=== PATIENT | female | born 1975 | race Caucasian/White ===

== ENCOUNTER 2018-08-28 19:58 | Emergency (ER) | payer MEDICAID ==
[~2018-08-28] VITALS: Ht 170.2 cm; Wt 73.0 kg
[~2018-08-28 19:58] MED LIST: FENT1PAT76 TP; GABA-826 PO
[2018-08-28] MEDS ORDERED: OXYC10TA6 PO (20:17)
[2018-08-28] MEDS ORDERED: CLON2TAB PO (20:17)
[2018-08-28] MEDS ORDERED: DIAZ5TAB PO (20:17)
[2018-08-28] MEDS ORDERED: LORazepam 2 MG/ML, 1ML IVPush ONE (20:30)
[2018-08-28] MEDS ORDERED: LORazepam 2 MG/ML, 1ML ONE (20:47)
--- NOTE | 2018-08-28 20:52 | NUR ---
PT MEDICATED PER MAR. VSS. NO NEEDS AT THIS TIME. PT RESTING IN ROOM WITH FAMILY AT BEDSIDE. CALL LIGHT WITHIN REACH.
[2018-08-28 20:53] VITALS: BP 106/95
[2018-08-28] MEDS ORDERED: KETOROLAC 30 MG/1 ML IVPush ONE (21:30)
[2018-08-28] MEDS ORDERED: KETOROLAC 30 MG/1 ML ONE (21:45)
== END 2018-08-28 22:17 | disposition home or self-care (01) ==
LOC: ED 21:21
DX: S09.8XXA Other specified injuries of head, initial encounter (principal); S80.01XA Contusion of right knee, initial encounter; S50.11XA Contusion of right forearm, initial encounter; W01.0XXA Fall on same level from slipping, tripping and stumbling without subsequent striking against object, initial encounter; Y93.89 Activity, other specified; Y92.89 Other specified places as the place of occurrence of the external cause; Y99.8 Other external cause status
CPT/HCPCS: 29505; 70450; 73090; 73564; 96374; 96375; 99284; J1885; J2060

== ENCOUNTER 2020-08-23 15:43 | Emergency (ER) | payer MEDICAID ==
[~2020-08-23] VITALS: Ht 162.6 cm; Wt 54.0 kg
[~2020-08-23 15:43] MED LIST changes: +CLON2TAB PO; +DIAZ5TAB PO; +OXYC10TA6 PO
[2020-08-23] MEDS ORDERED: ONDANSETRON ODT 4 MG ONE (16:20)
[2020-08-23] MEDS ORDERED: ONDANSETRON ODT 4 MG PO ONE (16:30)
--- NOTE | 2020-08-23 17:32 | NUR ---
PT IN BED. NO DISTRESS.
[2020-08-23 17:42] LABS: PH, VENOUS 7.371 pH (7.320-7.420)
[2020-08-23 17:43] LABS: BASOPHILS % (AUTO) 1 % (0-1); EOSINOPHILS % (AUTO) 0 % (1-7); LYMPHOCYTES % (AUTO) 10 % (22-44); MEAN CORPUSCULAR HEMOGLOBIN 28.6 pg (27.0-34.8); MEAN CORPUSCULAR HGB CONC 33.6 g/dL (32.4-35.8); MEAN PLATELET VOLUME 7.9 fL (7.4-10.4); MONOCYTES % (AUTO) 3 % (2-9); NEUTROPHILS % (AUTO) 87 % (42-75); PLATELET COUNT 328 x10^3/uL (130-400); RED BLOOD COUNT 4.62 x10^6/uL (3.82-5.3); RED CELL DISTRIBUTION WIDTH 14.5 % (9.6-15.2)
[2020-08-23 17:55] LABS: ALBUMIN 3.8 g/dL (3.4-5.0); ANION GAP 7 mmol/L (5-15); CALCIUM 8.6 mg/dL (8.5-10.1); CHLORIDE 110 mmol/L (98-107)
[2020-08-23 18:00] LABS: ALANINE AMINOTRANSFERASE 32 U/L (12-78); ALKALINE PHOSPHATASE 43 U/L (45-117); BILIRUBIN,TOTAL 0.4 mg/dL (0.2-1.0); CREATININE 0.85 mg/dL (0.55-1.02); TOTAL PROTEIN 7.4 g/dL (6.4-8.2)
[2020-08-23 18:10] LABS: ACETONE, SERUM Large (80mg/dL) (Negative)
[2020-08-23 18:22] VITALS: BP 96/64
--- NOTE | 2020-08-23 18:28 | NUR ---
PT UP OUT OF BED WITH STEADY GAIT, WALKED OUT SELF. DISSCUSSED COMMUNITY RESOURSES AND IF S&S WORSEN RETURN TO ER. [facility]
[2020-08-23 18:43] LABS: MD NO
== END 2020-08-23 18:38 | disposition home or self-care (01) ==
LOC: MERGE 15:43 → ED 17:07
DX: F41.9 Anxiety disorder, unspecified (principal); R11.0 Nausea; I48.91 Unspecified atrial fibrillation
CPT/HCPCS: 36415; 80053; 82010; 82803; 85025; 93005; 99284; Q0162